=== PATIENT | male | born 2000 | race Hispanic/Latino ===

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

== ENCOUNTER 2019-02-11 07:16 | Observation (INO) | payer BC ==
[~2019-02-11] VITALS: Ht 177.8 cm; Wt 95.4 kg
--- OUTSIDE RECORDS SUMMARY | 2019-02-11 07:19 | XMS REPORT ---
Author Author [facility] Address Unknown Phone Unavailable Care Team Providers Care Steel Checker Name Role Phone Patricia TREJO Unavailable Unavailable Problems This patient has no known problems. Allergies, Adverse Reactions, Alerts This patient has no known allergies or adverse reactions. Medications This patient has no known medications. Results Test Description Test Time Test Comments Text Results Atomic Results Result Comments TESTICULAR-HOPD 2018-03-10 22:46:00 [place] [id number] Patient Name: SARY RYAN MR #: [id number] : 2000 Age/Sex: 18/M Req #: [id number] [facility] Physician: Ordered by: JUSTIN TREJO MD Report #: [id number] Location: [facility] Room/Bed: Procedure: [id number] [facility] Exam Date: 03/10/18 Exam Time: 2134 REPORT STATUS: Signed EXAM: Testicular ultrasound INDICATION: Right testicular pain COMPARISON: None TECHNIQUE: Grayscale and color Doppler images of the testicles and scrotal contents were obtained. FINDINGS: RIGHT: The right testicle measures 3.9 x 2.2 x 2.7 cm. No testicular masses. Normal flow by color doppler and spectral waveform of the venous outflow. Normal appearance of the epididymis. No hydrocele or variocele. LEFT: The left testicle measures 3.9 x 2.1 x 2.5 cm. No testicular masses. Normal appearance of the epididymis. No hydrocele or variocele. IMPRESSION: Normal sonographic appearance of the testicles. Incomplete evaluation of the testicles by spectral waveform analysis. Signed by: Dr. Keiko Lopez M.D. on 03/10/2018 11:13 PM Dictated By: KEIKO LOPEZ MD 12 Transcribed By: JUMA on 03/10/182312 COPY TO: JUSTIN TREJO MD
[2019-02-11] MEDS ORDERED: ASPIRIN 325 MG TAB PO ONE (07:30)
[2019-02-11] MEDS ORDERED: ASPIRIN 325 MG TAB ONE (07:32)
[2019-02-11] MEDS ORDERED: ACETAMINOPHEN 325 MG TAB ONE (07:32)
[2019-02-11] MEDS ORDERED: IOPAMIDOL 370 MG/ML 200 ML INFUS..BTL INJ ONE ×2 (07:50→08:15)
[2019-02-11] MEDS ORDERED: SODIUM CHLORIDE 0.9% 50ML 0 ML ONE (07:50)
--- NOTE | 2019-02-11 08:07 | NUR ---
CODE STEMI ACTIVATED, JADIEL CALLED, REPORT TO OTILIA RN, PT AND FAMILY AWARE OF POC.
[2019-02-11] MEDS ORDERED: MIDAZOLAM HCL 2 MG/2 ML VIAL ONE (08:14)
[2019-02-11] MEDS ORDERED: VERAPAMIL HCL 2.5 MG/ML 2 ML VIAL ONE (08:14)
[2019-02-11] MEDS ORDERED: BIVALRIUDIN 250 MG/VIAL VIAL IV ONE (08:15)
[2019-02-11] MEDS ORDERED: SODIUM CHLORIDE 0.9% 1000ML 0 ML ONE (08:15)
[2019-02-11] MEDS ORDERED: LIDOCAINE HCL 2% LOCAL 20 ML VIAL ONE (08:15)
[2019-02-11] MEDS ORDERED: HEPARIN SOD/SOD CHLORIDE 0 ML ONE (08:15)
[2019-02-11] MEDS ORDERED: FENTANYL CITRATE/PF 100MCG/2 ML INJ ONE (08:15)
[2019-02-11] MEDS ORDERED: SODIUM CHLORIDE 0.9% 50ML 50 ML ONE (08:16)
--- NOTE | 2019-02-11 08:23 | NUR ---
REPORT TO EMS ALL QUESTIONS ANSWERED
[2019-02-11] MEDS ORDERED: ACETAMINOPHEN 325 MG TAB PO ONE (08:30)
[2019-02-11] MEDS ORDERED: SODIUM CHLORIDE FLUSH 10 ML SYR INJ PRN (09:15)
--- NOTE | 2019-02-11 09:59 | Diagnostic Imaging Report ---
EXAMINATION: CHEST SINGLE (PORTABLE) INDICATION: Chest pain COMPARISON: None FINDINGS: LINES/TUBES:EKG leads overlie the chest. LUNGS:The lungs are well-inflated. No focal consolidation or pulmonary edema. PLEURA:No pleural effusion or pneumothorax. MEDIASTINUM:The cardiomediastinal silhouette appears normal in size and shape. BONES/SOFT TISSUES:No acute osseous injury. ABDOMEN:No free air under the diaphragm. IMPRESSION: No focal pneumonia or pulmonary edema. Signed by: Uriel Simon MD on 02/11/2019 9:55 AM
[2019-02-11 10:48] LABS: AMPHETAMINES SCREEN,URINE N (NEGATIVE); BENZODIAZEPINES SCREEN,URINE N (NEGATIVE); PHENCYCLIDINE SCREEN,URINE N (NEGATIVE)
[2019-02-11] MEDS ORDERED: ONDANSETRON HCL INJ 2MG/ML 2ML 2 MG/ML VIAL IV PRN (12:30)
[2019-02-11] MEDS ORDERED: IBUPROFEN 600 MG TAB PO PRN (12:30)
[2019-02-11] MEDS ORDERED: HYDROCODONE/APAP 5MG-325MG TAB PO PRN (12:30)
[2019-02-11] MEDS ORDERED: ACETAMINOPHEN 325 MG TAB PO PRN (12:30)
--- NOTE | 2019-02-11 12:39 | Consultation ---
DATE OF CONSULTATION: Cardiology Consultation REASON FOR CONSULTATION: Chest pain. HISTORY OF PRESENT ILLNESS: This is a 18-year-old man with no significant past medical history, who presented to the emergency department with chest discomfort. The patient reports off and on chest pain yesterday, however, woke him up this morning from sleep, it was 10/10. He describes it as sharp, stabbing, pressure, and tightness. Pain is not exacerbated with exertion or movement or positions. The patient states that it does slightly worsened with deep inspiration. He states that he just got over a cold and his brother recently had strep. REVIEW OF SYSTEMS: A 12-point review of system was conducted and is negative except as stated above in the HPI. PAST MEDICAL HISTORY: None. PAST SURGICAL HISTORY: None recent. PAST FAMILY HISTORY: No premature coronary artery disease or sudden cardiac . SOCIAL HISTORY: No illicit drug, alcohol, or tobacco use. ALLERGIES: SHELLFISH AND IODINE. MEDICATIONS: See medication reconciliation form. PHYSICAL EXAMINATION: VITAL SIGNS: Temperature current is 99.6, temperature on arrival was 100.1, heart rate is 82, respirations are 14, blood pressure is 130/83, and oxygen saturation 100% on room air. GENERAL: He is well appearing, well built, no apparent distress. Alert and oriented x3. HEAD: Normocephalic and atraumatic. EYES: The extraocular muscles are intact. Conjunctivae clear. NECK: No JVD. No bruits. CARDIOVASCULAR: Regular rate and rhythm. LUNGS: Clear to auscultation. ABDOMEN: Soft, nontender, and nondistended. EXTREMITIES: No clubbing, cyanosis, or edema. VASCULAR: 2+ pulses. SKIN: Warm, dry, and intact. NEUROLOGIC: No focal deficits noted. LABORATORY DATA: Urine drug screen was negative. CK and CK-MBs were mildly elevated. Troponin was 0.6. A 12-lead electrocardiogram showed normal sinus rhythm with nonspecific ST-T wave abnormalities. Chest x-ray was clear. IMPRESSION: 1. Precordial pain, likely related to mild pericarditis. 2. Fever. 3. Upper respiratory tract infection. 4. Abnormal electrocardiogram. RECOMMENDATIONS: I doubt this is a true non-ST elevation myocardial infarction. He has no risk factors for coronary artery disease. He does not smoke cigarettes nor does he have hyperlipidemia or diabetes mellitus. There is no family history of premature coronary artery disease. His urine drug screen is negative. Likely illnesses of viral myopericarditis. Continue to trend cardiac enzymes. We will obtain a 2D echocardiogram. Further recommendations to follow. DO ERNESTO Pollard/TINO /[id number]
--- NOTE | 2019-02-11 14:45 | History and Physical ---
CHIEF COMPLAINT: Chest pain. HISTORY OF PRESENT ILLNESS: This is a 18-year-old male with no past medical history, works at [employer], very nice individual, who apparently reported to an outside ER with complaints of chest pain. The patient reports that he was yesterday at home and he noticed that he had some substernal chest pain that happened acutely. He states it happened substernally and had no radiation to any shoulder or arm. Had associated shortness of breath with no diaphoresis, nausea, or vomiting. The patient states that he did well for a little bit. His chest pain resolved yesterday with no medications. Overnight, he woke up suddenly with substernal chest pain again and came into the emergency room for further evaluation and management. The patient denies any shortness of breath during my evaluation. He states that he had some cough, congestion and some viral illness last Sunday. He reports having some fevers subjectively. He stated he had evidence of phlegm, cough, congestion. He did not take any medications for that. He states that the illness resolved on its own. He is currently doing much better at this time. He did present with a temperature of 100.1 at the outside ER. Chest x-ray was found to be negative. At the outside ER, he was found to have concern for underlying STEMI on EKG. Troponins were slightly elevated, and Cardiology was consulted. Cardiology came and evaluated the patient. At this time, they recommended just to monitor the troponins and see if the troponins are elevated. A 2D echo will be performed and a V/Q scan has been ordered. REVIEW OF SYSTEMS: Pertinent positives: Chest pain, concerns for possible underlying acid reflux. Pertinent negatives: Denies any palpitation, nausea, vomiting, diarrhea, dysuria, hematuria, frequency, urgency, lightheadedness, dizziness, abdominal pain, headaches, or any other complaints. The rest of 14-point review of systems have been reviewed with the patient and are negative. ALLERGIES: SHELLFISH. MEDICATIONS: He does not take any medications at home. PAST MEDICAL HISTORY: None. PAST SURGICAL HISTORY: None. FAMILY HISTORY: Hypertension, diabetes. SOCIAL HISTORY: No drugs. No alcohol. Does not smoke. Good social support. PHYSICAL EXAMINATION: VITAL SIGNS: Temperature is 99.6, but T-max is 100.1, pulse was 79, respiratory rate is 15, blood pressure was 96/83, but prior one was 130/83, but in the room, systolically he was in the 120s. Pulse ox 98% on room air. GENERAL: Not in acute distress, alert and oriented x3, cooperative on examination. HEENT: Head is normocephalic and atraumatic. Eyes; pupils are equal, round, and reactive to light bilaterally. Extraocular movements intact bilaterally. Throat, no evidence of erythema or exudates in the posterior pharynx. Has poor dentition. NECK: Supple. Good range of motion. PULMONARY: Clear to auscultation bilaterally. No wheezing, no rales, no rhonchi, no crackles appreciated. CARDIOVASCULAR: Positive S1 and S2. No murmurs, rubs, or gallops appreciated. ABDOMEN: Soft, nondistended, and nontender to palpation. Bowel sounds present. MUSCULOSKELETAL: Strength is 5/5 throughout. No evidence of any muscles deficits on examination. No weakness appreciated. NEUROLOGICAL: Cranial nerves II through XII grossly intact. No evidence of any neurological deficits on exam. SKIN: Intact. Warm to touch. Good cap refill. PSYCHIATRIC: Normal affect and mood. EXTREMITIES: No edema. Good range of motion throughout. LABORATORY DATA: Lab findings show a strep test was found to be negative. Flu A and B were negative. White count 10.1, hemoglobin was 15, hematocrit is 46, platelets of 193. Sodium 135, potassium 3.8, bicarb 27, chloride 106, glucose 119, calcium 8.4, BUN 9, creatinine is 1. ALT 16, AST 26, total bilirubin is 0.8, albumin is 3.8, CK-MB 4.7, his troponin was 0.62. EKG x2 showed concerns for ST-elevation and found in AVR and V1, V2. Chest x-ray was found to be negative. No focal pneumonia or pulmonary edema. IMPRESSION: 1. Chest pain, likely atypical in nature, but there is slight elevation of troponin. 2. Recent cough and congestion concerning for viral URI symptoms. 3. Low-grade temperature 100.1 recorded. 4. Concerns for acid reflux. PLAN: At this time, EKG was concerning for underlying STEMI, but Cardiology was consulted and does not feel like this is a STEMI at all. He has been evaluated by Cardiology already in the ER and at this time they does want to monitor the cardiac enzymes. I discussed with the nurse that when the next cardiac enzyme is back to please call me with the results. The patient denies any history of drug abuse or any alcohol abuse. We will go ahead and order a urine drug screen. Trend troponins. Aspirin. Follow with Cardiology recommendations. A 2D echo. As for his cough, congestion, concern for underlying viral illness, I will go ahead and get a chest x-ray, which has been negative. Blood cultures x2. Urine culture and start him on IV Rocephin for now. His white count was found to be normal. We will go ahead and put him on Lovenox for DVT prophylaxis. We will go ahead and order a V/Q scan as well to rule out any DVT. Get morning labs. I had a long discussion with the patient at bedside in which I described to him that we will trend his troponins, put him on antibiotics, get blood and urine cultures and follow the recommendations by the gas distribution supervisor. We will also order a chest x-ray in the morning. Get a.m. labs. MD HUI Schneider/MODL /[id number]
[2019-02-11 15:44] LABS: CREATINE KINASE MB 19.9 ng/mL (0-5.0)
[2019-02-11] MEDS: PANTOPRAZOLE SOD 40 MG TABEC PO SCH (16:09)
[2019-02-11] MEDS: SODIUM CHLORIDE 0.9% 1000ML 1,000 ML IV SCH ×2 (16:09→22:30)
[2019-02-11] MEDS: CEFTRIAXONE SOD 1 GM/NS 50 ML 50 ML IV SCH (16:09)
[2019-02-11] MEDS: ASPIRIN 325 MG TAB PO SCH ×2 (16:11→21:38)
[2019-02-11] MEDS: MORPHINE SULFATE 2 MG/ML SYR 1ML IV PRN (17:40)
[2019-02-11] MEDS: ENOXAPARIN SOD INJ 40 MG/0.4 ML SYR SC SCH (17:40)
--- NOTE | 2019-02-11 17:45 | NUR ---
Received patient from ER patient is alert and oriented x3, verbalizing needs, IV Fluids infusing at 100ml/hr. Able to transfer from stretcher to bed. Oriented to room and use of call light.
[2019-02-11 18:00] VITALS: BP 120/77
[2019-02-11 18:07] LABS: CREATINE KINASE MB 22.4 ng/mL (0-5.0)
[2019-02-11 18:30] VITALS: BP 120/77
[2019-02-11 18:44] LABS: AMPHETAMINES SCREEN,URINE NEGATIVE (NEGATIVE); BENZODIAZEPINES SCREEN,URINE NEGATIVE (NEGATIVE); BILIRUBIN,URINE NEGATIVE (NEGATIVE); CLARITY,URINE SL CLOUDY (CLEAR); COLOR,URINE YELLOW (YELLOW); KETONES,URINE NEGATIVE (NEGATIVE); LEUKOCYTE ESTERASE ,URINE NEGATIVE (NEGATIVE); NITRITE,URINE NEGATIVE (NEGATIVE); PHENCYCLIDINE SCREEN,URINE NEGATIVE (NEGATIVE); PROTEIN,URINE DIPSTICK NEGATIVE (NEGATIVE); URINE UROBILINOGEN 0.2 mg/dL (0.2 - 1)
--- NOTE | 2019-02-11 19:00 | NUR ---
Report received. Assumed care. Admission history, Family history & Vaccine history. Shift assessment done. See interventions.
[2019-02-11] MEDS ORDERED: IBUPROFEN600 MG PO (19:19)
[2019-02-11] MEDS ORDERED: MELOXICAM7.5 MG PO (19:19)
[2019-02-11 20:00] VITALS: BP 118/71
--- NOTE | 2019-02-11 20:20 | NUR ---
To radiology with nurse and monitoring for VQ lung scan.
--- NOTE | 2019-02-11 20:50 | NUR ---
Returned to room.
[2019-02-11 21:00] VITALS: BP 118/71
--- NOTE | 2019-02-11 21:35 | Diagnostic Imaging Report ---
Ventilation/perfusion lung scan Clinical Information: Chest pain, fever, cough, short of breath; 18-year-old male Comparison: CXR single view Discussion: Xenon-133 gas 10.5 mCi was administered via inhalation. Dynamic images of the lungs in the posterior projection were obtained through single breath, equilibrium, and washout phases. Distribution of tracer activity appears physiologic throughout the lungs.. There are no segmental ventilatory defects. Washout of tracer is normal with no evidence of air trapping. Perfusion images of the lungs were obtained in multiple projections following intravenous administration of approximately 7 mCi of Tc-99m MAA. Distribution of tracer appears physiologic throughout the lungs. The contours of the lungs are well demarcated. There are no segmental perfusion defects of any size. The cardiomediastinal silhouette is unremarkable. Impression: Scan findings represent a VERY LOW probability for acute pulmonary embolic disease based on the PIOPED II criteria. Signed by: Rufus Hendrickson DO on 02/11/2019 9:31 PM
[2019-02-12] VITALS (8 sets, daily range): BP systolic 102–116; BP diastolic 65–75
[2019-02-12 01:47] LABS: CREATINE KINASE MB 25.5 ng/mL (0-5.0)
--- NOTE | 2019-02-12 01:59 | NUR ---
CKMB 35.5 & TROPI 9.912. Called results to Dr. Inman. No new orders.
--- NOTE | 2019-02-12 05:25 | NUR ---
Medicated for c/o chest wall pain.
[2019-02-12] MEDS: ASPIRIN 325 MG TAB PO SCH ×3 (05:28→22:48)
[2019-02-12] MEDS: MORPHINE SULFATE 2 MG/ML SYR 1ML IV PRN (05:29)
--- NOTE | 2019-02-12 05:39 | NUR ---
c/o of continued pain. Call to Dr. Inman. Awaiting call back.
--- NOTE | 2019-02-12 05:55 | NUR ---
Requests additional pain med. [place] po given.
[2019-02-12] MEDS ORDERED: COLCHICINE 0.6 MG TAB PO ONE (06:00)
[2019-02-12 06:02] LABS: BASOPHILS % 0.3 % (0.0-1.0); EOSINOPHILS # (AUTO) 0.2 (0.0-0.4); HEMATOCRIT 45.5 % (38.2-49.6); HEMOGLOBIN 15.1 g/dL (14.0-18.0); LYMPHOCYTES # (AUTO) 3.2 (1.0-3.2); LYMPHOCYTES % 33.7 % (18.0-39.1); MEAN CORPUSCULAR HGB CONC 33.2 g/dL (31-35); MEAN CORPUSCULAR VOLUME 87.3 fL (81-99); MONOCYTES # (AUTO) 0.7 (0.2-0.8); MONOCYTES % 7.7 % (4.4-11.3); NEUTROPHILS # (AUTO) 5.2 (2.1-6.9); NEUTROPHILS % 56.1 % (38.7-80.0); PLATELET COUNT 214 x10e3/uL (140-360); RED BLOOD COUNT 5.21 x10e6/uL (4.3-5.7)
[2019-02-12 06:26] LABS: ANION GAP 11.3 mmol/L (8-16); BLOOD UREA NITROGEN 12 mg/dL (7-26); BUN/CREATININE RATIO 12 (6-25); CALCIUM 9.7 mg/dL (8.4-10.2); CARBON DIOXIDE 27 mmol/L (22-29); CHLORIDE 106 mmol/L (98-107); CREATININE, SERUM 0.97 mg/dL (0.72-1.25); EST GLOMERULAR FILTRATION RATE > 60 ML/MIN (60-); GLUCOSE 102 mg/dL (74-118); POTASSIUM 4.3 mmol/L (3.5-5.1); SODIUM 140 mmol/L (136-145)
[2019-02-12 07:16] LABS: CHOL/HDL RATIO 3.4 (3.9-4.7)
[2019-02-12] MEDS: SODIUM CHLORIDE 0.9% 1000ML 1,000 ML IV SCH ×2 (07:49→21:04)
[2019-02-12] MEDS: PANTOPRAZOLE SOD 40 MG TABEC PO SCH (07:49)
[2019-02-12] MEDS ORDERED: ONDANSETRON HCL 4 MG ORAL DISINTEGRATING TAB PO PRN (10:15)
[2019-02-12] MEDS ORDERED: METOPROLOL TARTRATE INJ 1 MG/ML VIAL IV PRN (10:30)
[2019-02-12] MEDS: COLCHICINE 0.6 MG TAB PO SCH ×2 (10:47→16:11)
--- NOTE | 2019-02-12 12:15 | Progress Note ---
DATE: 02/11/2019 Medicine Progress Note SUBJECTIVE: The patient denies any more chest pain. His troponin was elevated as high as 10. Skippers to be underlying viral etiology leading to his elevated troponin. The patient is currently doing well with no other complaints at this time. PHYSICAL EXAMINATION: VITAL SIGNS: Temperature 97.9, pulse 93, respiratory rate is 12, blood pressure is 112/65, and pulse ox 100% on room air. T-max showed to be 100.1. GENERAL: Not in acute distress. Alert and oriented x3. Cooperative on examination. HEENT: Head; normocephalic, atraumatic. Eyes; pupils are equal, round, and reactive to light bilaterally. Extraocular movements intact bilaterally. Throat; no evidence of erythema or exudates in the posterior pharynx. Has poor dentition. NECK: Supple. Good range of motion. PULMONARY: Clear to auscultation bilaterally. No wheezing, no rales, no rhonchi, no crackles appreciated. CARDIOVASCULAR: Positive S1 and S2. No murmurs, rubs, or gallops appreciated. ABDOMEN: Soft, nondistended, and nontender to palpation. Bowel sounds present. MUSCULOSKELETAL: Strength is 5/5 throughout. No evidence of any muscle deficits on examination. No weakness appreciated. NEUROLOGIC: Cranial nerve II through XII grossly intact. No evidence of any neurological deficits on exam. SKIN: Intact. Warm to touch. Good cap refill. PSYCHIATRIC: Normal affect and mood. EXTREMITIES: No edema. Good range of motion throughout. LABORATORY DATA: White count 9.3, hemoglobin 15 hematocrit 45, platelets of 214. Chemistry: Reviewed and stable. Troponin was 10.6 is the max, the peak reads 10.6, LDL 62. CRP is pending. Urinalysis negative. MICROBIOLOGY: Blood cultures, no growth to-date. IMAGING STUDIES: V/Q scan shows very low probability for acute pulmonary embolism. Chest x-ray was negative. IMPRESSION: 1. Chest pain, atypical in nature with elevation of troponin, likely to be viral in nature. 2. Recent cough and congestion, and viral URI symptoms. 3. Low-grade fever. 4. Acid reflux. PLAN: At this time, troponin was elevated and a 2D echo was performed. This is felt to be likely some sort of viral. Cardio etiology or some sort of viral etiology that occurred that allowed his troponin to be elevated. At this time, I will await for Cardiology. Discussed this with the patient and the family. As for his other medical issues, his blood cultures were found to be negative. We will continue with IV antibiotics. His white count is normal. He is afebrile. His V/Q scan was normal. His chest x-ray was normal. At this time, we will continue to monitor very closely. Follow up with Cardiology. I did discuss this with Cardiology and he will talk to the family later today. The patient is stable, alert, awake, and oriented. Vital signs stable during my evaluation. He had no complaints. His chest pain was all resolved. We will continue with same plan of care and monitor closely. Monitor culture cultures as well. MD HUI Schneider/RIKAL /[id number]
[2019-02-12] MEDS: CEFTRIAXONE SOD 1 GM/NS 50 ML 50 ML IV SCH (12:33)
[2019-02-12] MEDS: ENOXAPARIN SOD INJ 40 MG/0.4 ML SYR SC SCH (16:11)
--- NOTE | 2019-02-12 17:00 | NUR ---
Dr. Franks ordered CTA of chest, however patient allergic to shellfish. MD discussed options with patient and his family about pre medication for procedure or monitoring c reactive protein levels and monitoring for episodes of chest pain. Patient and family agreed to do CTA later if needed. Dr. Franks gave orders to cancel CTA. Patient denied chest pain throughout the shift. Will continue to monitor.
--- NOTE | 2019-02-12 19:12 | Progress Note ---
DATE: Cardiology Progress Note SUBJECTIVE: The patient had one short episode of chest pain earlier this morning, feeling better throughout the day. OBJECTIVE: VITAL SIGNS: Temperature is 97.9, heart rate is 83, respirations are 12, blood pressure is 114/75, oxygen saturation 100% on room air. GENERAL: Well appearing, well built, no apparent distress. CARDIOVASCULAR: Regular rate and rhythm. No rubs. Normal S1, S2. LUNGS: Clear to auscultation. ABDOMEN: Soft, nontender, nondistended. EXTREMITIES: No edema. CARDIOVASCULAR MEDICATIONS: Reviewed include high-dose aspirin and colchicine. LABORATORY DATA: Shows a creatinine of 0.97. Troponin I is 10.6, CK is 448, CK-MB is 25.5. IMPRESSION: 1. Precordial pain. 2. Mild pericarditis, likely viral. 3. Upper respiratory tract infection. RECOMMENDATIONS: The patient has no true acute coronary syndrome. He has no risk factors for coronary artery disease. He is feeling better on colchicine and high-dose aspirin. We will check a CRP level. His 2D echocardiogram showed normal left ventricular systolic function and size. There is no pericardial effusion. Would recommend a CTA of his coronary arteries, however, patient had an anaphylactic episode with shellfish. We will continue to monitor clinically at this point in time. DO ERNESTO Pollard/MODL /[id number]
[2019-02-13] VITALS (7 sets, daily range): BP systolic 103–116; BP diastolic 63–80
[2019-02-13 05:23] LABS: BASOPHILS % 0.4 % (0.0-1.0); EOSINOPHILS # (AUTO) 0.2 (0.0-0.4); EOSINOPHILS % 2.8 % (0.0-6.0); HEMATOCRIT 46.5 % (38.2-49.6); LYMPHOCYTES # (AUTO) 2.8 (1.0-3.2); LYMPHOCYTES % 38.3 % (18.0-39.1); MEAN CORPUSCULAR HEMOGLOBIN 28.5 pg (28-32); MEAN CORPUSCULAR HGB CONC 32.3 g/dL (31-35); MEAN CORPUSCULAR VOLUME 88.4 fL (81-99); MONOCYTES # (AUTO) 0.6 (0.2-0.8); MONOCYTES % 7.8 % (4.4-11.3); NEUTROPHILS # (AUTO) 3.6 (2.1-6.9); NEUTROPHILS % 50.4 % (38.7-80.0); PLATELET COUNT 230 x10e3/uL (140-360); RED BLOOD COUNT 5.26 x10e6/uL (4.3-5.7); RED CELL DISTRIBUTION WIDTH 11.9 % (11.7-14.4)
[2019-02-13 05:38] LABS: ANION GAP 12.4 mmol/L (8-16); BLOOD UREA NITROGEN 13 mg/dL (7-26); BUN/CREATININE RATIO 14 (6-25); CALCIUM 9.7 mg/dL (8.4-10.2); CARBON DIOXIDE 28 mmol/L (22-29); CHLORIDE 106 mmol/L (98-107); CREATININE, SERUM 0.91 mg/dL (0.72-1.25); EST GLOMERULAR FILTRATION RATE > 60 ML/MIN (60-); GLUCOSE 97 mg/dL (74-118); POTASSIUM 4.4 mmol/L (3.5-5.1); SODIUM 142 mmol/L (136-145)
[2019-02-13] MEDS: ASPIRIN 325 MG TAB PO SCH ×3 (06:09→22:57)
[2019-02-13] MEDS: SODIUM CHLORIDE 0.9% 1000ML 1,000 ML IV SCH ×3 (06:09→23:21)
[2019-02-13 07:55] LABS: CREATINE KINASE MB 29.4 ng/mL (0-5.0)
[2019-02-13] MEDS: PANTOPRAZOLE SOD 40 MG TABEC PO SCH (08:06)
[2019-02-13] MEDS: COLCHICINE 0.6 MG TAB PO SCH ×2 (08:06→16:04)
--- NOTE | 2019-02-13 08:51 | NUR ---
Informed Dr. Franks of elevated Troponin, no new orders at this time, will continue to monitor
[2019-02-13] MEDS: CEFTRIAXONE SOD 1 GM/NS 50 ML 50 ML IV SCH (13:32)
--- NOTE | 2019-02-13 16:22 | Progress Note ---
DATE: Cardiology Progress Note SUBJECTIVE: The patient is feeling well. Denies any chest pain. No acute events. OBJECTIVE: VITAL SIGNS: Temperature is 98.7, heart rate 70, respirations are 17, blood pressure is 103/67, ox saturation 98% on room air. GENERAL: Well appearing, no apparent distress. CARDIOVASCULAR: Regular rate and rhythm. LUNGS: Clear to auscultation. ABDOMEN: Soft, nontender, nondistended. EXTREMITIES: No edema. LABORATORY DATA: Reviewed. C-reactive protein 31. CK is 349, CK-MB is 29, troponin I is 15.5. Troponin is 0.91. IMPRESSION: 1. Precordial pain, resolved. 2. Myopericarditis. 3. Upper respiratory tract infection. RECOMMENDATIONS: The patient has no risk factors for coronary artery disease. This is not an acute coronary syndrome. His CRP level is elevated and his history is consistent with viral myopericarditis. 2D echocardiogram showed normal left ventricular size and function with no pericardial effusion. We did recommend a coronary CTA. However, the patient's family was reluctant due to his history of anaphylactic shock. Continue high-dose aspirin and colchicine. Jose J Franks DO BM/MODL /[id number]
[2019-02-13] MEDS: ENOXAPARIN SOD INJ 40 MG/0.4 ML SYR SC SCH (17:01)
[2019-02-14 03:00] VITALS: BP 105/51
[2019-02-14] MEDS: ASPIRIN 325 MG TAB PO SCH (05:34)
[2019-02-14 06:17] LABS: BASOPHILS % 0.3 % (0.0-1.0); EOSINOPHILS # (AUTO) 0.2 (0.0-0.4); EOSINOPHILS % 2.7 % (0.0-6.0); HEMATOCRIT 43.9 % (38.2-49.6); HEMOGLOBIN 14.4 g/dL (14.0-18.0); LYMPHOCYTES # (AUTO) 2.7 (1.0-3.2); LYMPHOCYTES % 41.4 % (18.0-39.1); MEAN CORPUSCULAR HEMOGLOBIN 28.9 pg (28-32); MEAN CORPUSCULAR HGB CONC 32.8 g/dL (31-35); MONOCYTES # (AUTO) 0.4 (0.2-0.8); MONOCYTES % 6.6 % (4.4-11.3); NEUTROPHILS # (AUTO) 3.2 (2.1-6.9); NEUTROPHILS % 48.8 % (38.7-80.0); PLATELET COUNT 238 x10e3/uL (140-360); RED BLOOD COUNT 4.99 x10e6/uL (4.3-5.7); RED CELL DISTRIBUTION WIDTH 11.7 % (11.7-14.4)
[2019-02-14 06:45] LABS: ANION GAP 12.2 mmol/L (8-16); BLOOD UREA NITROGEN 12 mg/dL (7-26); BUN/CREATININE RATIO 14 (6-25); CALCIUM 9.4 mg/dL (8.4-10.2); CARBON DIOXIDE 26 mmol/L (22-29); CHLORIDE 108 mmol/L (98-107); CREATININE, SERUM 0.88 mg/dL (0.72-1.25); EST GLOMERULAR FILTRATION RATE > 60 ML/MIN (60-); GLUCOSE 89 mg/dL (74-118); POTASSIUM 4.2 mmol/L (3.5-5.1); SODIUM 142 mmol/L (136-145)
[2019-02-14] MEDS: PANTOPRAZOLE SOD 40 MG TABEC PO SCH (07:58)
[2019-02-14] MEDS: COLCHICINE 0.6 MG TAB PO SCH (07:58)
[2019-02-14 08:50] VITALS: BP 115/70
[2019-02-14 09:00] VITALS: BP 115/70
[2019-02-14] MEDS: SODIUM CHLORIDE 0.9% 1000ML 1,000 ML IV SCH (10:30)
[2019-02-14] MEDS: CEFTRIAXONE SOD 1 GM/NS 50 ML 50 ML IV SCH (12:18)
--- NOTE | 2019-02-14 13:39 | NUR ---
Called Mr. Pavan Archibald father of Mr. Oliver Archibald, informed him to follow up with cardiology and make an appointment, so cardiology can titrate aspirin. Mr. Pavan Archibald verbalized understanding he stated they will call to make appointment today with cardiology.
--- NOTE | 2019-02-14 17:54 | NUR ---
Patient discharged home verbalized understanding of d/c instructions.
--- NOTE | 2019-02-14 18:14 | Progress Note ---
DATE: Cardiology Progress Note SUBJECTIVE: The patient denies chest pain or shortness of breath. OBJECTIVE: VITAL SIGNS: Temperature 98.8 degrees, pulse 78, respiratory rate 20, blood pressure 115/70, and oxygen saturation 100% on room air. GENERAL: Awake, alert, no acute distress. LUNGS: Clear to auscultation bilaterally. No wheezes or crackles. CARDIOVASCULAR: Normal rate. Regular rhythm. No murmur. ABDOMEN: Soft, nontender. EXTREMITIES: No edema. CARDIAC MEDICATIONS: 1. Colchicine 0.6 mg p.o. b.i.d. 2. Aspirin 650 mg p.o. q.8 hours. LABORATORY DATA: WBC 6.62, hemoglobin 14.4, hematocrit 43.9, platelets 238. Sodium 142, potassium 4.2, chloride 108, CO2 of 26, BUN 12, creatinine 0.88. Troponin 3.41. CRP 19. TELEMETRY: Normal sinus rhythm. IMPRESSION: 1. Myopericarditis. 2. Upper respiratory tract infection. RECOMMENDATIONS: Continue colchicine and aspirin for treatment of his myopericarditis. His troponin is improving. He will need followup with Dr. Franks in one week for repeat CRP to titrate off NSAIDs. Echocardiogram, there was normal LV size and function with no pericardial effusion. Coronary CT was offered to the patient to evaluate for coronary artery disease, however, the patient's family was reluctant to proceed due to his history of anaphylactic shock. The patient may be discharged from a cardiac standpoint. Thank you for this consult. We will continue to follow. Violetta Juarez MD ABS/MODL /[id number]
--- NOTE | 2019-02-16 15:14 | Discharge Summary ---
FINAL DISCHARGE DIAGNOSES: 1. Myopericarditis. 2. Upper respiratory tract infection. MANAGER OF PHOTOGRAPHY: Cardiology. PHYSICAL EXAMINATION: VITAL SIGNS: Temperature is 98.8, pulse 70, respiratory rate is 20, blood pressure 115/70, and pulse ox 100% on room air. LABORATORY FINDINGS: Show white count 6.6, hemoglobin 14, hematocrit is 43.9, and his platelets was 238. Chemistry; sodium 142, potassium 4.2, chloride 108, bicarb 26, anion gap of 12, BUN is 12, creatinine 0.88, glucose is 89, and calcium is 9.4. His troponin on [facility] 2.9, 4.4, 9.9, 10.6, 15.5, then downtrended to 3.41. CRP was 19. LDL cholesterol was 62. Urinalysis negative. Toxicology screen was all negative. MICROBIOLOGY: Blood cultures were negative. IMAGING STUDIES: V/Q scan shows very low probability for acute pulmonary embolism. A 2D echo shows a normal EF. Chest x-ray shows no focal pneumonia or pulmonary edema. HOSPITAL COURSE: This is a 18-year-old male, who reportedly had a recent cough and congestion 5 to 6 days ago with subjective fever. Woke up in the middle of night, suddenly having acute onset of chest pain and was seen and evaluated at [facility] for further evaluation and management. On initial admission, the EKG was concerning for underlying STEMI and found to have elevated troponin, which the [employer] on-call was notified by the ER physician. Due to the patient's risk factors being very low and his age, they opted against any kind of left heart catheterization. At this time, it was felt that the patient likely has some sort of viral etiology leading to his elevated troponin and evidence of EKG that showed a STEMI. The patient was then transferred to the [facility] for further management and care. The same Cardiology group was consulted. The patient was evaluated by Cardiology. A 2D echo was reviewed, showed evidence of a normal EF with no issues. The patient and the patient's family had a long conversation with Cardiology, and he discussed overall findings and what etiology of the patient has. At this time, it was felt that the patient likely has myopericarditis and recommended oral aspirin 650 mg p.o. t.i.d. and colchicine 0.6 mg p.o. b.i.d. The patient was started here in the hospital with those medications. It was felt to be some underlying viral etiology according to Cardiology. His troponins were downtrending upon being discharged. The patient was also offered a coronary CT by the manager strategic partnerships. The patient and the family refused that he has a history of shellfish allergy and they were concerned that he may have an anaphylactic shock. At this time that CT was not ordered by Cardiology as per family's wishes. He had an echo that shows a normal LV size and function with no pericardial effusion. The patient while here had blood cultures, which were negative. He was on IV antibiotics. There was no source of any infection able to see or evaluate. The patient likely has some upper respiratory tract infection, likely viral in etiology. I spoke with Cardiology recommending continuing on discharge aspirin 650 mg p.o. t.i.d. as well as colchicine 0.6 mg p.o. b.i.d. for 10 additional days and the family is to follow up in his office in 1 week in order to titrate the medication accordingly. I have explained that to the family as well, as well as Cardiology explained to the family and they verbalized understanding. On discharge, the patient has been cleared for discharge home by Cardiology. The family was satisfied with all answers to their questions. They had no other questions prior to being discharged to home. On the day of discharge, vital signs were stable, labs reviewed and stable. The patient is seen and evaluated, and examined thoroughly on the day of discharge. No other complaints. The patient verbalized understanding and agrees to plan of care to follow up accordingly as an outpatient with the primary care physician in 1 week and the manager [employer] partnerships in 1 week time. The family and the patient verbalized understanding and agree of plan of care as described above by the manager strategic partnerships and the whole entire team taking care of this patient. The patient was advised to follow very closely with the manager strategic partnerships. I discussed with them in the event of any worsening symptoms, he was advised please come back to the emergency room as soon as possible for further evaluation and management. MEDICATIONS: See med reconciliation form including aspirin 650 mg p.o. t.i.d. and colchicine 0.6 mg p.o. b.i.d. x10 days as recommended by Cardiology and they will follow up in the Cardiology office in order to titrate the medications accordingly. Family verbalized understanding. DISPOSITION: To home. CONDITION: Stable. DIET: Heart healthy. In the event of any worsening symptoms, the patient was advised to come back to the ED for further evaluation. Discharge summary took greater than 35 minutes. MD HUI Schneider/MODL /[id number]
== END 2019-02-14 13:00 | disposition home or self-care (01) ==
LOC: FSED 07:16 → ERHOLD 09:12 → INTOOBSV 09:12 → IMCU 17:37
PROVIDERS: ADMIT Internal Medicine; ATTEND Internal Medicine
DX: I40.0 Infective myocarditis (principal); R07.2 Precordial pain; J06.9 Acute upper respiratory infection, unspecified; Z91.041 Radiographic dye allergy status; Z91.013 Allergy to seafood; K21.9 Gastro-esophageal reflux disease without esophagitis
CPT/HCPCS: 36415 ×4; 71045; 78582; 80048 ×3; 80053; 80061; 80307; 81001; 82550 ×3; 82553 ×3; 83036; 83518; 84484 ×4; 85025 ×4; 86140 ×2; 87040; 87400; 93005 ×2; 93306; 99284; A9540; A9558; G0378 ×4; J0696 ×4; J1650 ×3; J2270 ×2; J2405; J7030 ×2; S0164 ×4; J0583; J2001; J2250; J3010; Q9967

== ENCOUNTER → 2019-04-07 | Outpatient (CLI) | payer BC ==
[~2019-04-07] MED LIST: IBUPROFEN600 MG PO; MELOXICAM7.5 MG PO
--- NOTE | 2019-04-07 16:08 | Diagnostic Imaging Report ---
Exam: Testicular ultrasound. Clinical History: Chronic testicular pain Findings: Sonographic evaluation of the testicles. Both testes are normal in echogenicity and size without intratesticular mass. Normal symmetric blood flow with normal waveforms. No evidence of testicular torsion. RIGHT: The right testicle measures 4.7 x 2.2 x 3.0 cm and appears unremarkable. The right epididymis measures 1.0 x 0.7 x 0.7 cm and appears unremarkable. No hydrocele or varicocele. LEFT: The left distal measures 4.5 x 2.1 x 3.1 cm and appears unremarkable. The left epididymis measures 1.2 x 1.0 x 0.8 cm and appears unremarkable. No hydrocele. Small varicocele. Impression: No testicular torsion. No intratesticular mass. Left varicocele. Signed by: Uriel Simon MD on 04/07/2019 4:04 PM
== END ==
LOC: US 14:41
PROVIDERS: ATTEND Urology
DX: N50.819 Testicular pain, unspecified (principal); I86.1 Scrotal varices; G89.29 Other chronic pain
CPT/HCPCS: 76870; 93976

== ENCOUNTER 2023-11-11 23:14 | Emergency (ER) | payer BC ==
[~2023-11-11] VITALS: Ht 175.3 cm; Wt 101.2 kg
[2023-11-12 00:50] VITALS: PULSE 65; RESP 18; TEMP 97.4
[2023-11-12 03:05] VITALS: BP 129/84; PULSE 84; RESP 18; TEMP 98.3; O2SAT 99
[2023-11-12] MEDS ORDERED: KETAMINE HCL INJ 50 MG/ML 10 ML VIAL ONE (04:01)
== END 2023-11-12 01:56 | disposition home or self-care (01) ==
LOC: FSED 23:18
DX: S83.8X1A Sprain of other specified parts of right knee, initial encounter (principal); W18.39XA Other fall on same level, initial encounter; Y92.89 Other specified places as the place of occurrence of the external cause
CPT/HCPCS: 99284

== ENCOUNTER → 2024-02-22 | Day surgery (SDC) | payer BC ==
[2024-02-15 15:09] LABS: BASOPHILS % 0.6 % (0.0-1.0); EOSINOPHILS # (AUTO) 0.1 (0.0-0.4); EOSINOPHILS % 1.4 % (0.0-6.0); HEMATOCRIT 48.1 % (38.2-49.6); HEMOGLOBIN 15.8 g/dL (14.0-18.0); LYMPHOCYTES % 43.1 % (18.0-39.1); MEAN CORPUSCULAR HEMOGLOBIN 29.9 pg (28-32); MEAN CORPUSCULAR HGB CONC 32.8 g/dL (31-35); MEAN CORPUSCULAR VOLUME 90.9 fL (81-99); MONOCYTES # (AUTO) 0.4 (0.2-0.8); MONOCYTES % 5.6 % (4.4-11.3); NEUTROPHILS # (AUTO) 3.4 (2.1-6.9); NEUTROPHILS % 49.2 % (38.7-80.0); PLATELET COUNT 220 x10e3/uL (140-360); RED BLOOD COUNT 5.29 x10e6/uL (4.3-5.7); RED CELL DISTRIBUTION WIDTH 11.9 % (11.7-14.4); WHITE BLOOD COUNT 6.91 x10e3/uL (4.8-10.8)
[2024-02-15 15:41] LABS: ALBUMIN 4.2 g/dL (3.5-5.0); ALBUMIN/GLOBULIN RATIO 1.1 (0.8-2.0); ANION GAP 28.4 mmol/L (8-16); BILIRUBIN,TOTAL 0.5 mg/dL (0.2-1.2); CALCIUM 9.3 mg/dL (8.4-10.2); CREATININE, SERUM 0.93 mg/dL (0.72-1.25); TOTAL PROTEIN 7.9 g/dL (6.5-8.1)
[2024-02-15 15:42] LABS: POTASSIUM 3.4 mmol/L (3.5-5.1)
[~2024-02-22] MED LIST changes: +BUPIVACAINE HCL 0.5% INJ 30 ML VIAL INJ ONE; +LIDOCAINE 1% W/EPINEPHRINE 20 ML VIAL ONE
[2024-02-22] MEDS: CEFAZOLIN SODIUM 2 GM ONE (06:03)
[2024-02-22] MEDS: LACTATED RINGER'S 1,000 ML ONE (06:03)
[2024-02-22 07:52] VITALS: TEMP 97.7
[2024-02-22 09:05] VITALS: BP 117/75; PULSE 68; RESP 16; O2SAT 99
== END | disposition home or self-care (01) ==
LOC: OR 05:26
PROVIDERS: ATTEND Orthopaedic Surgery
DX: S83.271A Complex tear of lateral meniscus, current injury, right knee, initial encounter (principal); S83.241A Other tear of medial meniscus, current injury, right knee, initial encounter; M67.51 Plica syndrome, right knee; X58.XXXA Exposure to other specified factors, initial encounter; Z91.041 Radiographic dye allergy status; Z91.013 Allergy to seafood; Z01.812 Encounter for preprocedural laboratory examination; Z79.1 Long term (current) use of non-steroidal anti-inflammatories (NSAID); Z87.891 Personal history of nicotine dependence
CPT/HCPCS: 29880; 36415; 80053; 85025; C1713; J0690; J7121